=== PATIENT | female | born 1995 | race Two or more races ===

== ENCOUNTER 2024-12-08 18:16 | Emergency (ER) | payer MEDICAID, SELFPAY ==
[2024-12-08 18:33] VITALS: BP 137/83; PULSE 104; RESP 16; TEMP 37.3; O2SAT 100; BMI 32.4
--- NOTE | 2024-12-08 18:36 | PD.EDRME ---
Rapid Medical Screening Exam RME Arrival date/time: 12/08/24 18:16 29F with no significant PMH presents to ED with several days of R buttock abscess. Chief Complaint: Skin/Abscess/Foreign Body Time Seen by Provider: 12/08/24 18:36 Vital signs: Vital Signs Temperature 99.2 F 12/08/24 18:33 Pulse Rate 104 H 12/08/24 18:33 Respiratory Rate 16 12/08/24 18:33 Blood Pressure 137/83 H 12/08/24 18:33 Pulse Oximetry (%) 100 12/08/24 18:33 Oxygen Delivery Method Room Air 12/08/24 18:33
--- NOTE | 2024-12-08 18:58 | PD.EDSKIN ---
ED Skin Abcess FB-RME/HPI General Chief complaint: Skin/Abscess/Foreign Body Stated complaint: CYST TO RIGHT BUTTOCK Time Seen by Provider: 12/08/24 18:36 Arrival date/time: 12/08/24 18:16 RME / HPI RME / HPI narrative: 29F with no significant PMH presents to ED with several days of R buttock abscess. Onset of symptoms for the last 3 days, severity of symptoms moderate, getting worse today. Denies any fever denies any constipation denies any rectal pain. Patient is ambulatory. Patient is not diabetic. Related Data Previous Rx's ?Medication ?Instructions ?Recorded acetaminophen 500 mg tablet 1,000 mg (2 x 500 mg) PO Q6H PRN 03/20/21 pain #20 tabs ibuprofen 800 mg tablet 800 mg PO Q6H PRN pain #10 tabs 03/20/21 cyclobenzaprine 10 mg tablet 10 mg PO BID PRN muscle spasm #10 07/28/22 tabs clindamycin HCl 300 mg capsule 300 mg PO TID #21 caps 12/08/24 Allergies Allergy/AdvReac Type Severity Reaction Status Date / Time No Known Allergies Allergy Verified 03/20/21 16:03 Review of Systems Review of Systems Narrative Review of Systems: Review of system reviewed and within normal limits except mentioned in HPI ED Exam Narrative Physical exam: VITAL SIGNS: Reviewed. GENERAL APPEARANCE: Alert and interactive, follows commands, no acute distress, HEAD AND FACE: Non-traumatic. ENT: PERRL, pink conjunctivitis, eyelid no trauma, Mucous membrane moist. NECK: Supple, nontender, no nuchal rigidity. ABDOMEN: Soft, positive bowel sounds, nondistended, no guarding, nontender, no rebound, no masses, RECTAL: 3 x 3 cm swelling redness, fluctuant, right buttock GENITAL: Deferred. NEUROLOGICAL: Gross motor function intact sensory function intact, Appropriate for age. MUSCULOSKELETAL: low back nontender, full range of motion. EXTREMITIES: Nontender, full range of motion. SKIN: Color pink, dry, no rash, no lacerations, no abrasions, no contusions. LYMPHATICS: Deferred. Course Quality Measures none Orders Category Date Time Status Incision and Drainage Set Up X1 Care 12/08/24 18:36 Active Acetaminophen Tab [Tylenol ES Tab] Med 12/08/24 18:51 Discontinued 1,000 mg PO X1 ONE cefTRIAXone [Rocephin] 1,000 mg Med 12/08/24 18:52 Discontinued Lidocaine 1% 20 ml [Xylocaine 1% 20 ML] 2.1 ml IM X1 Vital Signs Vital signs: Vital Signs Temperature 99.2 F 12/08/24 18:33 Pulse Rate 104 H 12/08/24 18:33 Respiratory Rate 16 12/08/24 18:33 Blood Pressure 137/83 H 12/08/24 18:33 Pulse Oximetry (%) 100 12/08/24 18:33 Oxygen Delivery Method Room Air 12/08/24 18:33 Procedures -ED Abscess I/D Site: other (Right buttock) Sedation/analgesia: none Local Anesthetic: lidocaine 1% Amount of anesthesia used (mL): 10 Technique: incised with #11 blade Amount of fluid expressed (mL): 5 Irrigation: Yes Packing used?: plain Complications: pain Skin / Abscess / Foreign Body MDM Narrative MDM Narrative:: 29F with no significant PMH presents to ED with several days of R buttock abscess. Onset of symptoms for the last 3 days, severity of symptoms moderate, getting worse today. Denies any fever denies any constipation denies any rectal pain. Patient is ambulatory. Patient is not diabetic. Incision and drainage was done by me see procedure notes. Patient tolerated the procedure well. Patient received ceftriaxone IM in the emergency room. Patient data External records reviewed:: None Clinical information provided by:: patient Social determinants that could affect healthcare access:: none Patient has the following chronic illnesses:: none How is presenting disease/condition affected by chronic disease/condition?: no chronic disease Evaluation data The following diagnostics were reviewed and interpreted by me:: other (specify) (None) Lab and/or radiology exams considered but not ordered:: None Interpretation Summary: None Medications / Prescriptions Medications or Prescriptions considered but not ordered:: None Medication administrations:: Medication Administration History Discontinued Medications Acetaminophen (Acetaminophen 500 Mg Tablet) 1,000 mg PO X1 ONE Stop: 12/08/24 18:52 Ceftriaxone Sodium 1,000 mg/ (Lidocaine HCl 2.1 ml) 0 mg IM X1 ONE Stop: 12/08/24 18:53 Tylenol and ceftriaxone IM Consultations Consultation(s) initiated? (list below): No Consultation #1 (Physician, Specialty, Details): None Diagnosis Skin/Abscess Differential Diagnosis: abscess of skin or subcutaneous tissue and cellulitis Most likely diagnosis given after review of the tests above:: Buttock abscess Admission Indicated Admission indicated?: not indicated Admission Request Was there a request for admission?: No Disposition Plan Disposition Plan: Discharge Discharge Attestation Discharge Attestation: The patient was given an opportunity to ask questions and understood the discharge instructions. Discharge instructions specifically effects, indications for sooner follow up or return to the emergency department, and the expected course of current diagnosis. Patient condition: Stable Discharge Plan Plan Patient Disposition: HOME (Self Care) Disposition Comment: stable Prescriptions/Referrals Prescriptions/Med Rec: New clindamycin HCl 300 mg capsule 300 mg PO TID Qty: 21 0RF No Action acetaminophen 500 mg tablet 1,000 mg PO Q6H PRN (Reason: pain) Qty: 20 0RF ibuprofen 800 mg tablet 800 mg PO Q6H PRN (Reason: pain) Qty: 10 0RF cyclobenzaprine 10 mg tablet 10 mg PO BID PRN (Reason: muscle spasm) Qty: 10 0RF Problem List Clinical Impression: Abscess of buttock, right Patient/Caregiver Discharge Instructions Discharge Activity: activity as tolerated Education Materials: ED Abscess, Incision And Drainage Additional Instructions: Thank you for the opportunity for serving you today. You are stable for discharged . You are advised to: Follow-up with your PCP in 1 to 2 days Return to ED for worsening of symptoms Increase oral fluids Take medication as prescribed Mobilize your packing every day by 1 cm Print Language: Japanese Stand Alone Forms: Celine Award Info., Patient Portal Info Letter YARI/MERRY Supervising Physician YARI/MERRY Supervising Physician: MD Marleni
[2024-12-08] MEDS: ACETAMINOPHEN 500 MG TABLET 1000 MG PO (19:25)
[2024-12-08] MEDS: cefTRIAXone 1,000 MG, LIDOCAINE 1% 20 ML 2.1 ML IM (19:26)
== END 2024-12-08 20:20 | disposition home or self-care (01) ==
LOC: SERX 19:38
PROVIDERS: Emergency Provider Emergency Medicine
DX: L02.31 Cutaneous abscess of buttock (principal)
CPT/HCPCS: 10060; 96372; 99283; J0696; J3490; A9270

== ENCOUNTER 2024-12-10 19:42 | Emergency (ER) | payer MEDICAID, SELFPAY ==
[2024-12-10 20:08] VITALS: BP 122/77; PULSE 77; RESP 16; TEMP 36.6; O2SAT 99
--- NOTE | 2024-12-10 20:18 | EDNOTE_ITS ---
<Statement entered by Yuliet Sifuentes MD - 12/12/24 04:23> As co-signing physician, I was present and available for consult prn. I concur with the plan and care as documented by the midlevel provider. ED Skin Abcess FB-RME/HPI General Chief complaint: Skin/Abscess/Foreign Body Stated complaint: NEEDS ABSCESS UNPACKED Time Seen by Provider: 12/10/24 20:16 Arrival date/time: 12/10/24 19:42 RME / HPI RME / HPI narrative: 29-year-old female patient was brought in for evaluation regarding request for removal of wound packing. Patient had an I&D done to the right buttock abscess 2 days ago. Patient was instructed to mobilized the packing every day however unable to do it due to pain. Patient is currently taking clindamycin p.o. Related Data Previous Rx's ?Medication ?Instructions ?Recorded acetaminophen 500 mg tablet 1,000 mg (2 x 500 mg) PO Q 6H PRN 03/20/21 pain #20 tabs ibuprofen 800 mg tablet 800 mg PO Q6H PRN pain #10 t abs 03/20/21 cyclobenzaprine 10 mg tablet 10 mg PO BID PRN muscle s pasm #10 07/28/22 tabs clindamycin HCl 300 mg capsule 300 mg PO TID #21 caps 12/08/24 Allergies Allergy/AdvReac Type Severity Reaction Status Date / Time No Known Allergies Allergy Verified 03/20/21 16:03 Review of Systems Review of Systems Narrative Review of Systems: Review of system reviewed and within normal limits except mentioned in HPI ED Exam Narrative Physical exam: VITAL SIGNS: Reviewed. GENERAL APPEARANCE: Alert and interactive, follows commands, no acute distress, HEAD AND FACE: Non-traumatic. ENT: PERRL, pink conjunctivitis, eyelid no trauma, Mucous membrane moist. NECK: Supple, nontender, no nuchal rigidity. RECTAL: Status post I&D, right buttock abscess, with packing no drainage noted GENITAL: Deferred. NEUROLOGICAL: Gross motor function intact sensory function intact, Appropriate for age. MUSCULOSKELETAL: low back nontender, full range of motion. EXTREMITIES: Nontender, full range of motion. SKIN: Color pink, dry, no rash, no lacerations, no abrasions, no contusions. LYMPHATICS: Deferred. Course Quality Measures none Vital Signs Vital signs: Vital Signs Temperature 98 F 05/02/25 20:08 Pulse Rate 77 12/10/24 20:08 Respiratory Rate 16 12/10/24 20:08 Blood Pressure 122/77 12/10/24 20:08 Pulse Oximetry (%) 99 12/10/24 20:08 Skin / Abscess / Foreign Body MDM Narrative MDM Narrative:: 29-year-old female patient was brought in for evaluation regarding request for removal of wound packing. Patient had an I&D done to the right buttock abscess 2 days ago. Patient was instructed to mobilized the packing every day however unable to do it due to pain. Patient is currently taking clindamycin p.o. I remove the packing without any difficulty. Patient tolerated the procedure well there is no drainage noted the abscess is completely gone. No redness nontender Patient appears nontoxic and hemodynamically stable. Patient discharged home and instructed to follow-up with primary care provider in 24 to 48 hours. Instructed to return to the emergency department immediately if worsening of symptoms Patient data External records reviewed:: None Clinical information provided by:: patient Social determinants that could affect healthcare access:: none Patient has the following chronic illnesses:: None How is presenting disease/condition affected by chronic disease/condition?: no chronic disease Evaluation data The following diagnostics were reviewed and interpreted by me:: other (specify) (None) Lab and/or radiology exams considered but not ordered:: Plan Interpretation Summary: None Medications / Prescriptions Medications or Prescriptions considered but not ordered:: None Medication administrations:: None Consultations Consultation(s) initiated? (list below): No Diagnosis Skin/Abscess Differential Diagnosis: abscess of skin or subcutaneous tissue and other (Wound check) Most likely diagnosis given after review of the tests above:: Wound check, removal of packing, status post I&D right buttock abscess Admission Indicated Admission indicated?: not indicated Admission Request Was there a request for admission?: No Disposition Plan Disposition Plan: Discharge Discharge Attestation Discharge Attestation: The patient was given an opportunity to ask questions and understood the discharge instructions. Discharge instructions specifically effects, indications for sooner follow up or return to the emergency department, and the expected course of current diagnosis. Patient condition: Stable Discharge Plan Plan Patient Disposition: HOME (Self Care) Discharge Disposition comment: Stable Prescriptions/Referrals Prescriptions/Med Rec: No Action acetaminophen 500 mg tablet 1,000 mg PO Q6H PRN (Reason: pain) Qty: 20 0RF ibuprofen 800 mg tablet 800 mg PO Q6H PRN (Reason: pain) Qty: 10 0RF cyclobenzaprine 10 mg tablet 10 mg PO BID PRN (Reason: muscle spasm) Qty: 10 0RF clindamycin HCl 300 mg capsule 300 mg PO TID Qty: 21 0RF Problem List Clinical Impression: Wound check, abscess Patient/Caregiver Discharge Instructions Discharge Activity: activity as tolerated Education Materials: Wound Care, ED Abscess, Incision And Drainage Additional Instructions: Thank you for the opportunity for serving you today. You are stable for discharged . You are advised to: Follow-up with your PCP in 1 to 2 days Return to ED for worsening of symptoms Increase oral fluids Continue taking your clindamycin. Continue daily dressing as needed Print Language: Lao Stand Alone Forms: Celine Award Info., Patient Portal Info Letter PA/CIVIL DRAFTER Supervising Physician YARI/MERRY Supervising Physician: MD Everett
[2024-12-10 20:20] VITALS: BP 115/81; PULSE 87; RESP 17; TEMP 36.9; O2SAT 97
== END 2024-12-10 20:25 | disposition home or self-care (01) ==
LOC: SERX 20:34
PROVIDERS: Emergency Provider Emergency Medicine
DX: Z48.00 Encounter for change or removal of nonsurgical wound dressing (principal); L02.31 Cutaneous abscess of buttock
CPT/HCPCS: 99282

== ENCOUNTER 2025-01-15 18:16 | Emergency (ER) | payer MEDICAID, SELFPAY ==
[2025-01-15 18:22] VITALS: PULSE 94; O2SAT 98; BMI 31.7
[2025-01-15 18:25] VITALS: BP 137/91; PULSE 97; RESP 16; TEMP 37.1; O2SAT 98; BMI 32.4
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
== END 2025-01-15 22:34 | disposition home or self-care (01) ==
PROVIDERS: Emergency Provider Emergency Medicine
DX: S13.4XXA Sprain of ligaments of cervical spine, initial encounter (principal); S29.9XXA Unspecified injury of thorax, initial encounter; V89.9XXA Person injured in unspecified vehicle accident, initial encounter; W22.12XA Striking against or struck by front passenger side automobile airbag, initial encounter
CPT/HCPCS: 71046; 72125; 99284